=== PATIENT | female | born 1950 | race Caucasian/White ===

== ENCOUNTER → 2020-10-26 14:16 | Outpatient (BNVA) | payer MEDICARE, SELFPAY | PROVIDERS: PCP Student in an Organized Health Care Education/Training Program; Visit Provider Urology | DX: Z11.59 Encounter for screening for other viral diseases (principal); I44.30 Unspecified atrioventricular block; I10 Essential (primary) hypertension; K21.9 Gastro-esophageal reflux disease without esophagitis; I50.9 Heart failure, unspecified; Z79.01 Long term (current) use of anticoagulants | CPT/HCPCS: 36415; 80048; 81001; 85025; 85610; 86850; 86900; 86920; 87086; 87635 ==

== ENCOUNTER 2020-11-01 07:08 | Day surgery (SDC) | payer MEDICARE, MEDICAID, SELFPAY ==
--- NOTE | 2020-10-26 11:04 | XR_ITS ---
WS: [id number] XR chest 1V portable [id number] REASON FOR EXAM: Maker generator exchange/possible lead replacement FINDINGS: Previous sternotomy with valve replacement. Battery pack overlying the left chest with leads to the left subclavian vein to the right atrial and right ventricular apex region. Lead to the right ventricular apex has a slightly redundant course. Th e heart is not enlarged. Thoracic aorta is moderately tortuous without dilatation. No active pulmonary parenchymal or pleural disease is noted. Bony thorax is intact. XR/XR chest 1V portable [id number] IMPRESSION: No acute abnormality. Pacemaker as above.
[2020-10-26 11:09] VITALS: BMI 25.3
--- NOTE | 2020-10-26 11:33 | ECG_ITS ---
[facility] Test Date: 2020-10-26 Pat Name: Pamela Blank Department: Room: Gender: Female Collections Professional: HATTIE : 1950 Requested By: Ramirez Rees Order Number: [id number] Tanna MD: Albertina Perez M.D. Measurements Intervals [place] Rate: 65 P: [place]: QRS: -72 QRSD: 166 T: 117 QT: 476 QTc: 495 Interpretive Statements ELECTRONIC VENTRICULAR PACEMAKER ABNORMAL RHYTHM ECG No previous ECG available for comparison Electronically Signed On 10-26-2020 21:19:41 LANDSCAPE CREW MEMBER by Albertina Perez M.D. [id number]
[2020-10-26 12:30] LABS: Bilirubin Urine 1+ (Negative); Blood Urine Neg (Negative); Glucose Urine UA Norm (Normal); Ketones Urine Negative (Negative); Nitrate Urine Positive (Negative); Protein Urine Neg (Negative); Urine Appearance Hazy (CLEAR); Urine Color Dark Yellow (Yellow); pH Urine 5 (5-7)
[2020-10-26 12:31] LABS: Add Urine Microscopic? YES; Leukocyte Esterase Urine 2+ (Negative); Urobilinogen Urine 1 mg/dL (Negative)
[2020-10-26 12:33] LABS: Add Urine Culture? Yes; Bacteria Urine 4+ /hpf; Squamous Epithelial Cell Urine 0-4 /hpf (0-5); WBC Urine 40-55 /hpf (0-5)
[2020-10-26 12:45] LABS: Basophils # 0.1 10^3/uL (0.0-0.1); Eosinophils # 0.1 10^3/uL (0.0-0.8); Eosinophils % 1.3 %; Hematocrit 46.7 % (37.0-47.0); Hemoglobin 15.9 g/dL (11.5-15.3); Lymphocytes # 1.1 10^3/uL (0.8-4.8); Mean Corpuscular Hemoglobin 36.2 pg (28.0-34.0); Mean Corpuscular Volume 106.4 fL (81-99); Monocytes # 0.6 10^3/uL (0.2-0.9); Monocytes % 9.7 %; Neutrophils # 4.22 10^3/uL (1.8-7.7); Neutrophils % 69.7 %; Nucleated Red Blood Cells % 0 %; Platelet Count 187 10^3/cmm (130-400); Red Blood Count 4.39 10^6/uL (4.1-5.3); Red Cell Distribution Width 13.2 % (12.1-15.1); White Blood Count 6.1 10^3/uL (4.0-10.0)
[2020-10-26 13:00] LABS: INR 3.68 (0.8-1.2)
[2020-10-26 13:38] LABS: Anion Gap 15.6 (5-19); Blood Urea Nitrogen 10 mg/dL (8-23); Calcium 9.1 mg/dL (8.5-10.5); Carbon Dioxide 24 mmol/L (22-29); Chloride 104 mmol/L (98-107); Glomerular Filtration Rate 71.3 mL/min (90-130); Glucose 109 mg/dL (65-115); Osmolality Calculated 288 mOsm/kg (285-295); Potassium 4.6 mmol/L (3.5-5.1); Sodium 139 mmol/L (136-145)
[2020-11-01] VITALS (12 sets, daily range): BP systolic 108–145; BP diastolic 63–88; PULSE 65–81; RESP 15–20; TEMP 36.6–36.8; O2SAT 92–99
--- NOTE | 2020-11-01 | SCC_ITS ---
Procedure Done: Dual-chamber pacemaker generator exchange; right atrial lead placement 356.4 seconds of fluoroscopic guidance, for a cumulative dose of 45.87 mGy, was provided to Dr. Baez by the radiology department. C-arm images of the chest were saved for the patient's permanent record. JENIFER
[2020-11-01] MEDS: sodium chloride 0.9% 1,000 ML 30 ML IV (08:01)
--- NOTE | 2020-11-01 08:14 | P.ANESASSM_ITS ---
Pre-Anesthetic Assessment Pre-Anesthetic Assessment: Height/Weight: Height 1.68 m Weight 71.214 kg Temp Pulse Resp BP Pulse Ox 98.1 F 65 18 145/88 98 11/01/20 07:34 11/01/20 07:34 11/01/20 07:34 11/01/20 07:34 11/01/20 07:34 Preop Diagnosis: Pacemaker generator end of service/malfunctioning lead Proposed Procedure: Operation Date: 11/01/20 08:40 Proposed Procedures p pacemaker generator exchange poss lead revision(Not Applicable) - Toño Baez MD Familial anesthetic complications: NOne Was Beta Alice taken within 24 hours: N/A Last intake: Intake NPO > 8 hrs Last Liquid Date 10/31/20 Last Liquid Time 05:00 Last Solid Date 10/31/20 Last Solid Time 17:00 Social: Social History: No alcohol and No tobacco Exam: Pre-Anes Outpt Exam: alert, oriented x 3, clear to auscultation bila terally and regular rate & rhythm Airway: Cervical ROM: WNL MP: 3 Dentition: False (bottom) and Partials (top) Pulmonary: Pulmonary: Asthma CV/HEM: CV/HEM: Arrythmia, CHF (diastolic) and HTN Comments: Sick sinus syndrome w/ pacemaker in DDDR mode - atrial lead failure. Hx mechanical aortic valve, off warfarin on lovenox bridge, last taken yesterday night GI: GI: GERD (No active GERD at the moment) Metabolic: Metabolic: Hyperlipidemia Anesthetic Plan: ASA status: 4 Anesthesia: MAC Risk of > 500 ml blood loss (7ml/kg in children): No Meds/Allergies Current Medications: Current Medications Generic Name Dose Route Start Last Admin Trade Name Freq PRN Reason Stop Dose Admin Sodium Chloride 1,000 mls @ 30 ml s/hr 11/01/20 07:30 11/01/20 08:01 Sodium Chloride 0.9% IV 11/02/20 07:29 30 mls/hr .Q24H CANDY Administration PFSH Anesthesia PFSH: Medical History (Updated 06/26/20 @ 16:53 by Will Wang MD) CHF (congestive heart failure) GERD (gastroesophageal reflux disease) HTN (hypertension) Hyperlipidemia Warfarin anticoagulation Surgical History S/P AVR (aortic valve replacement) Status cardiac pacemaker Family History Other Diabetes Hypertension Social History Smoking and tobacco status: former smoker Alcohol intake: current Data Anesthesia CBC & Chem 7: 10/26/20 12:29 12 12:29 Other Labs: Laboratory Results - last 48 hr 10/26/20 12:29 Blood Type A Negative Rho(D) Type Negative Antibody Screen Negative Crossmatch See Detail Cardiac Studies: No Data to Display
--- NOTE | 2020-11-01 08:36 | P.HP_ITS ---
Providers/Chief Complaint Primary Care Provider: Jd Blanco History of Present Illness Pamela Blank is a 70 year old female status post AVR mechanical valve by Dr. Galeana several years ago. She had a current pacemaker since 2010. Pacemaker is end of service. There is some question as to malfunction of the atrial lead which may need to be replaced as well due to high impedance. She is on warfarin 3 mg daily except 1.5 mg on Sundays and Wednesdays. She last held her warfarin October. She been on Lovenox injections daily since that time when her last injection was yesterday. She is followed by Dr. Wang and her personal physician in [facility]. Review of Systems Const: Denies: fever(s), chills, change in appetite, change in weight, fatigue or night sweats Eyes: Denies: change in vision or blurry vision ENMT: Denies: odynophagia or hoarseness Card: Denies: chest pain, palpitations, irregular heart rhythm or edema Resp: Denies: dyspnea or productive cough GI: Denies: abdominal pain, nausea, vomiting, dysphagia, heartburn or change in bowel habits : Denies: dysuria, urinary frequency, urinary urgency or urinary hesitancy Musc: Denies: extremity pain or extremity swelling Skin/Breast: Reports: other (Bruises easily); Denies: rash Neuro: Denies: headache(s), numbness in extremities, weakness in extremities or sensory changes Psych: Denies: anxiety, depression or change in appetite Endo: Denies: polyuria, polydipsia or cold intolerance Greg/Lymph: Denies: easy bruising, easy bleeding, petechiae or enlarged lymph nodes Medications/Allergies Home Medications Medication Instructions Recorded Confirmed Last Taken Type albuterol sulfate 90 mcg/actuation 2 puff INHALATION Q6H PRN 01/27/20 11/01/20 10/31/20 History aerosol inhaler fluticasone propionate 110 2 puff INHALATION BID 01/27/20 11/01/20 10/25/20 History mcg/actuation HFA aerosol inhaler lisinopril 20 mg tablet 10 mg PO DAILY 01/27/20 11/01/20 11/01/20 05:00 History loratadine 10 mg tablet 10 mg PO DAILY 01/27/20 11/01/20 11/01/20 05:00 History famotidine 20 mg tablet 20 mg PO BID tab 01/29/20 11/01/20 10/31/20 09:00 History fluticasone propionate 50 1 spray INTRANASAL DAILY PRN gm 06/25/20 11/01/20 10/25/20 History mcg/actuation nasal spray,suspension montelukast 10 mg tablet 10 mg PO DAILY tab 06/25/20 11/01/20 10/31/20 09:00 History pantoprazole 20 mg tablet,delayed 20 mg PO BID tab 06/25/20 11/01/20 10/31/20 09:00 History release verapamil 120 mg 24 hr 120 mg PO DAILY cap 06/25/20 11/01/20 11/01/20 05:00 History capsule,extended release warfarin 1 mg tablet 3 mg PO DAILY tab 06/25/20 11/01/20 10/26/20 History enoxaparin 60 mg/0.6 mL 60 mg SUBCUT DIRECTED #3 ea 10/19/20 11/01/20 10/31/20 09:00 Rx subcutaneous syringe levofloxacin 500 mg tablet 500 mg PO DAILY #4 tab 10/29/20 11/01/20 11/01/20 05:00 Rx Allergies Allergy/AdvReac Type Severity Reaction Status Date / Time Sulfa (Sulfonamide Allergy Unknown tongue Verified 10/26/20 11:16 Antibiotics) swells and feels scalded PFSH PFSH: Medical History (Updated 11/01/20 @ 08:39 by Toño Baez MD) CHF (congestive heart failure) GERD (gastroesophageal reflux disease) HTN (hypertension) Hyperlipidemia Warfarin anticoagulation Surgical History S/P AVR (aortic valve replacement) Status cardiac pacemaker Family History Other Diabetes Hypertension Social History Smoking and tobacco status: former smoker Alcohol intake: current Vital Signs Vitals Signs: Last Vital Signs Temp 98.1 F 11/01/20 07:34 Pulse 65 11/01/20 07:34 Resp 18 11/01/20 07:34 BP 145/88 11/01/20 07:34 Pulse Ox 98 12/14/20 07:34 Physical Exam Const: COMMON NORMALS: patient oriented x3 and alert ORIENTATION/CONSCIOUSNESS: Yes oriented to person, Yes oriented to place and Yes oriented to time HENMT: COMMON NORMALS: normocephalic HEAD & SCALP: normocephalic Neck/C-Spine: COMMON NORMALS: full ROM, supple, no JVD and No carotid bruits GENERAL: Yes trachea midline CERVICAL SPINE: Yes cervical ROM normal Chest: COMMONS NORMALS: normal inspection of the chest (Well-healed sternotomy incision. Chest wall stable.) and normal palpation of entire chest wall OTHER: Easily palpable pacing generator in left subclavicular region. Resp: COMMON NORMALS: normal respiratory effort, No use of accessory muscles, clear to auscultation bilaterally and percussion normal EFFORT & INSPECTION: Yes able to speak in complete sentences and Yes symmetric chest movement AUS CULTATION: clear to auscultation bilaterally PERCUSSION: percussion normal Cardio: COMMON NORMALS: no JVD, regular rate, regular rhythm, S1 normal heart sound present, S2 normal heart sound present, No gallops present (Cardio), No murmurs present (Cardio), No rub (Cardio) and Peripheral pulses 2+ throughout JUGULAR VENOUS DISTENTION: no JVD RATE: regular rate RHYTHM: regular rhythm HEART SOUNDS: S1 normal heart sound present and S2 normal heart sound present PERIPHERAL PULSES: Peripheral pulses 2+ throughout Neuro: COMMON NORMALS: patient oriented x3, no focal motor deficits and no sensory deficits noted SENSORIUM/ORIENTATION: Yes alert, Yes oriented to person, Yes oriented to place and Yes oriented to time GAIT: Yes Normal gait present A&P Assessment and plan (1) Encounter for servicing of pacemaker at end of battery life: We will plan for pacing generator exchange today and if determined diagnostically intraoperatively, will replace the atrial lead if necessary. Rationale for this was carefully and frankly discussed with Ms. Blank and family. All questions answered. Details and risks of the procedure were carefully and frankly discussed. Risks reviewed include the possibility of , stroke, heart attack, major bleeding, infection requiring need for pacemaker extraction, pneumonia, normal thorax requiring chest tube, migration of the lead requiring revision, inability to place the new lead, organ failure, failure to benefit, prolonged hospital stay, pain after the procedure, need for further procedures, inability to complete the procedure, and possible need for long-term followup. Increased risk related to recent Lovenox and long-term warfarin administration and history of easy bruising. All questions were answered. Appropriate consents have been provided for review and signature. Status: Acute Coding Level of Care Code New Pt Acute Franchise Broker for Chg Fwd Patient Type New Exam Detailed Medical Decision Making Moderate Complexity Diagnoses Encounter for servicing of pacemaker at end of battery life Z45.010 Time Spent (min) 30
--- NOTE | 2020-11-01 08:58 | SC_ITS ---
WS: [id number] C-arm FL for Pacemaker REASON FOR EXAM: intra-op FINDINGS: 3 pacemaker leads are identified. 2 lead tips are within the right atrium. The third is at the right ventricular apex. Previous sternotomy. Prosthetic heart valve. SC/C-arm FL for Pacemaker IMPRESSION: Presumed new right atrial pacemaker lead.
[2020-11-01] MEDS: lidocaine 1% INJ 20 mL SUBCUT (09:10)
[2020-11-01] MEDS: ceFAZolin 1,000 mg SDV 1000 MG IRRIGATION (09:10)
--- NOTE | 2020-11-01 10:15 | P.OP_ITS ---
Operative Report Date of procedure: November 01, 2020 Pre-op Diagnosis: Pacemaker generator end of service/malfunctioning lead Post-op diagnosis: same Procedure Done: Dual-chamber pacemaker generator exchange; right atrial lead placement Implants: Right atrial lead; pacing generator Pathology: none sent Surgeon: Toño Baez Anesthesia: MAC and Local Complications: None: Chest x-ray pending Condition: stable Disposition: floor Brief History: 70-year-old female status post AVR and subsequent pacemaker implantation with pacing generator end of service and with high impedance of the right atrial lead. Device replacement and attempt for lead replacement also has been recommended. This is been carefully discussed with patient and family. Proper consents have been reviewed and signed. Increased risk related to attempted to place this lead and the small statured female with prior cardiac surgery and 2 leads currently in position was discussed. Procedure: Ms. Blank taken operating room underwent IV conscious sedation with anesthesia monitoring after being carefully positioned in the OR table. Her entire chest were sterilely prepped and draped. Initially 1% lidocaine was infiltrated through the incisional scar on her left anterior chest wall from her prior pacemaker implantation. Dissection was carried down to the pseudocapsule which was opened and the patient generator was delivered. Atrial and ventricular leads were dissected free. Next, the patient and Trendelenburg position, utilizing modified shoulder technique, the left subclavian vein was engaged and a guidewire was placed under fluoroscopic guidance into position with some difficulty crossing at the junction of the innominate vein and the SVC. Next, the dilator was passed over the guidewire under fluoroscopic guidance followed by the sheath. Again, there is some resistance noted in the innominate vein. Next, using a series of curved and straight wires, right atrial lead was placed deep into the right atrium and then subsequently removed and placed into position with stability and then interrogated with appropriate parameters. Next, the new generator was brought in the field. We initially interrogated the ventricular lead to confirm that it was still appropriate. Following this, the new atrial lead and old ventricular lead were placed into the new pacing generator and secured with excellent capture and appropriate parameters that were measured. Old generator was removed from the field. The old right atrial lead was capped. Wound was irrigated with antibiotic solution. Pacing generator and leads were placed back into the old pacemaker pocket. Hemostasis confirmed. Sponge needle count correct. Wound was closed in 2 layers of 3-0 Vicryl suture. Skin was reapproximated in a similar manner with 4-0 Vicryl suture. Skin adhesive was applied followed by a sterile pressure dressing. Left arm was placed in a sling. She was awakened from IV conscious sedation with equal breath sounds bilaterally and taken to the postoperative care unit where a chest x-ray is currently pending. We did counselor/art therapist with her completion of the procedure. She will be admitted overnight as outpatient in a bed.
--- NOTE | 2020-11-01 10:33 | XR_ITS ---
WS: [id number] XR chest 1V portable [id number] REASON FOR EXAM: POST OP FINDINGS: Compared to the previous examination of 10/26/2020, generator replacement in the left chest wall with additional lead to the right atrium. Prosthetic heart valve. No cardiomegaly. No left pneumothorax. Minor linear atelectasis in the left lung base. Right lung clear. XR/XR chest 1V portable [id number] IMPRESSION: New generator and lead placement as above.
--- NOTE | 2020-11-01 15:05 | ANE.PACU2 ---
Inpatient post-anesthesia follow up: Airway intact: Yes Vital signs: Temperature 98.3 F Pulse Rate 71 Respiratory Rate 19 Blood Pressure 118/70 Pulse Oximetry 96 Oxygen Delivery Me thod Room Air Oxygen Flow Rate Fraction of Inspir ed Oxygen Hydration adequate: Yes Nausea and vomiting: No Pain level: 3 Mental status: Baseline
[2020-11-01] MEDS: HYDROcodone-acetaminophen 5-325 mg Tablet 1 TAB PO (16:01)
[2020-11-01] MEDS: cetylpyridinium Lozenge 1 EACH MUCOUS MEM (16:15)
[2020-11-01] MEDS: ceFAZolin 1,000 MG in sodium chloride 0.9% (plus) 50 ML 100 MG IV (17:24)
[2020-11-01] MEDS: famotidine 20 mg Tablet PO (17:24)
[2020-11-02] VITALS: BP 120/63; PULSE 70; RESP 14; TEMP 36.6; O2SAT 95
[2020-11-02] MEDS: ceFAZolin 1,000 MG in sodium chloride 0.9% (plus) 50 ML 100 MG IV ×2 (00:10→08:14)
[2020-11-02 03:55] VITALS: BP 100/72; PULSE 75; RESP 18; TEMP 36.6; O2SAT 94
[2020-11-02 05:03] VITALS: PULSE 70
[2020-11-02] MEDS: HYDROcodone-acetaminophen 5-325 mg Tablet 1 TAB PO (06:31)
--- NOTE | 2020-11-02 07:06 | PM.DCS ---
Discharge Providers Date of Discharge: November 02, 2020 Attending Provider at Discharge: Toño Baez MD Primary Care Provider: Jd Blanco Diagnoses at Discharge Discharge Diagnosis (1) Encounter for servicing of pacemaker at end of battery life: Status: Acute Reason for Visit Reason for Visit: Brief History: Pacemaker generator end of service and malfunctioning atrial lead Hospital Course Hospital Course Ms. Blank was electively admitted for planned pacemaker generator exchange and evaluation of right atrial lead. Lead was found to have very high impedance. She underwent pacemaker generator exchange and new right atrial lead placement. Postoperatively, she received prophylactic antibiotics and was observed overnight. System interrogation this morning reveals appropriate function. Outer pressure dressing was removed. She does have some modest ecchymosis does have a history for easy bruising. She will be discharged home today in stable condition. She may resume her warfarin at normal dosing schedule. We will also place her on Levaquin 5 mg daily for the next 3 days empirically. She will follow [facility] in 1 week Physical Exam Chest: COMMONS NORMALS: normal palpation of entire chest wall OTHER: Some modest ecchymosis noted around the entire dry dressing. There is no swelling or erythema noted. Only mild tenderness. Resp: COMMON NORMALS: normal respiratory effort and clear to auscultation bilaterally EFFORT & INSPECTION: Yes able to speak in complete sentences AUSCULTATION: clear to auscultation bilaterally Cardio: COMMON NORMALS: regular rate, regular rhythm and S1 normal heart sound present RATE: regular rate RHYTHM: regular rhythm HEART SOUNDS: S1 normal heart sound present OTHER: Prosthetic aortic valve click Extremity: COMMON NORMALS: no clubbing, cyanosis or edema Discharge Data Data Completed and Pending: Completed Studies During Hospitalization Category Date Time Status XR chest 1V denisa ble [id number] Routine Exams 10/26/20 11:04 Completed XR chest 1V denisa ble [id number] Routine Exams 11/01/20 10:33 Completed Pending at discharge Category Date Time Status Leukocyte Reduced RBC Routine Lab 10/26/20 12:29 Results Type and Screen - Cardiac Routine Lab 10/26/20 12:29 Results Labs from last 24 hours 10/26/20 12:29 Blood Type A Negative Rho(D) Type Negative Antibody Screen Negative Crossmatch See Detail Vitals: Last Vital Signs Temp 98 F 11/02/20 03:55 Pulse 70 11/02/20 05:03 Resp 18 11/02/20 03:55 BP 100/72 11/02/20 03:55 Pulse Ox 94 11/02/20 03:55 Discharge Plan Discharge Patient Disposition: Home Condition: Stable Prescriptions: New hydrocodone-acetaminophen 5-325 mg Tablet 1 tab PO Q6H PRN (Reason: Moderate Pain) Qty: 12 RF: 0 levofloxacin 500 mg Tablet 500 mg PO DAILY Qty: 3 RF: 0 Continued famotidine 20 mg tablet 20 mg PO BID RF: 0 pantoprazole 20 mg tablet,delayed release (DR/EC) 20 mg PO BID RF: 0 lisinopril 20 mg tablet 10 mg PO DAILY RF: 0 Flovent HFA 110 mcg/actuation HFA aerosol inhaler 2 puff INHALATION BID RF: 0 loratadine 10 mg tablet 10 mg PO DAILY RF: 0 albuterol sulfate [Ventolin HFA] 90 mcg/actuation HFA aerosol inhaler 2 puff INHALATION Q6H PRN (Reason: SOB) RF: 0 warfarin 1 mg tablet 3 mg PO DAILY RF: 0 montelukast 10 mg tablet 10 mg PO DAILY RF: 0 verapamil 120 mg capsule,ext rel. pellets 24 hr 120 mg PO DAILY RF: 0 fluticasone propionate 50 mcg/actuation spray,suspension 1 spray INTRANASAL DAILY PRN (Reason: allergy symptoms) RF: 0 Discontinued enoxaparin [Lovenox] 60 mg/0.6 mL syringe 60 mg SUBCUT DIRECTED Qty: 3 RF: 0 levofloxacin 500 mg tablet 500 mg PO DAILY Qty: 4 RF: 0 Discharge Orders: Discharge Order (Routine); Ordered 11/02/20 Ordered By: Toño Baez Referrals: [facility] [Provider Group] - 1 week (Pacemaker clinic) Discharge Diet: Usual diet Discharge Activity: Limit activity as instructed Activity Restrictions/Additional Instructions: May remove bandage in 2 days May begin daily showers in 2 days No swimming or tub baths x 2 weeks No ointments on incision Report drainage, redness, heat, increased pain, or swelling to clinic May resume Coumadin on normal dosing schedule Discharge Attestations Time Spent in Discharge Care*: less than 30 min Specific Discharge Activities: educating patient, discussing with casey saw operator/social workers/dc planners, documenting/other paperwork and evaluating patient/reviewing data Status at Discharge: Functional status at discharge: independent ambulation Overall status at discharge: patient is back to baseline Quality Metrics Clinical Quality Measures During this hospital stay, did patient experience: None Coding Level of Care Code Acute Kitchen Utility Associate for Chg Fwd Diagnoses Encounter for servicing of pacemaker at end of battery life Z45.010
[2020-11-02 07:12] VITALS: BP 134/79; PULSE 72; RESP 15; TEMP 36.8; O2SAT 92
[2020-11-02 07:14] VITALS: PULSE 72; RESP 16; O2SAT 96
[2020-11-02] MEDS: levoFLOXacin 500 mg Tablet PO (08:12)
[2020-11-02] MEDS: loratadine 10 mg Tablet PO (08:13)
[2020-11-02] MEDS: famotidine 20 mg Tablet PO (08:13)
[2020-11-02] MEDS: lisinopril 10 mg Tablet PO (08:13)
[2020-11-02] MEDS: montelukast sodium 10 mg Tablet PO (08:13)
--- NOTE | 2020-11-02 08:52 | PC.CHAP ---
Pastoral Care Encounter/Spiritual Assessment Type of Contact [] Declined feed mill tender visit [] Patient/Family/Request visit [] Outpatient visit [] Follow-up visit [] Physician referral [] Code/Alert [x] Routine visit [] Staff referral [] Actively dying [] Patient sleeping [] Family support [] [] Out of room [] Palliative care [] [] Receiving care in room [] Pre-surgical visit [] Trauma [] Long length of stay [] ICU visit [] Other: Relational/Emotional Strength [] Patient feels connected with others/family/visitors/staff [] Distress [] Loneliness/isolation [] Abandonment Spirituality of Patient [] Person of Mercy [] Attends Pentecostalism of their Mercy [] Believes in Prayer [] Reads Bible or Buddhism materials [] There are Spiritual issues to be addressed Blow Mold Machine Operator Interventions [x] Prayer [x] Active listening [x] Non-anxious presence [x] Spiritual/emotional support [] Crisis/trauma care [] Spiritual counseling [] Bereavement support [] Provided bereavement packet [] Provided Bible/devotional materials [] Provided toy/stuffed animal, coloring book to patient or family member [] Provided Communion [] Anointing/[place] [] Salvation [x] Completed spiritual assessment [] Other: Impact on Illness or Injury [] Angry [] Fearful [] Anxious [] Often cries [] Exhaustion [] Unable to work [] Unable to attend restorationism [] Unable to walk/stand [] Unable to read [] Unable to drive [] Unable to eat/drink [] Unable to sleep [] Unable to be with family [] Patient intubated [] Other: Summary resting well, had breakfast,not a big breakfast person Time spent with patient 10 min
[2020-11-02 09:07] VITALS: BP 134/79; PULSE 72; RESP 16; TEMP 36.8; O2SAT 96
--- NOTE | 2020-11-02 09:37 | PC.NURSE ---
Patient discharged home at this time self care patient provided with all discharge instructions and educated in new medications as well as when to resume continued medications; patient verbalized understanding. IV discontinued cath intact min bleeding noted; bandage applied. Patient assisted to wheel chair with all belongings and discharge instructions in hand. Patient accompanied to private vehicle by staff. Patient alert oriented and in stable condition.
== END 2020-11-02 09:42 | disposition home or self-care (01) ==
LOC: OR 08:19 → CSU 10:24
PROVIDERS: PCP Student in an Organized Health Care Education/Training Program; Visit Provider Thoracic Surgery (Cardiothoracic Vascular Surgery)
PROC: 0JWT0PZ Revision of Cardiac Rhythm Related Device in Trunk Subcutaneous Tissue and Fascia, Open Approach (ICD-10-PCS; CPT 33206; principal; 2020-11-01 08:40)
DX: Z45.010 Encounter for checking and testing of cardiac pacemaker pulse generator [battery] (principal); J45.909 Unspecified asthma, uncomplicated; I11.0 Hypertensive heart disease with heart failure; I50.30 Unspecified diastolic (congestive) heart failure; K21.9 Gastro-esophageal reflux disease without esophagitis; E78.5 Hyperlipidemia, unspecified; Z79.01 Long term (current) use of anticoagulants; Z87.891 Personal history of nicotine dependence
CPT/HCPCS: 33206; 33233; 33234; 12345; 71045; 76000; 87077; 87186; 93005; 94640; C1779; C1786; J0690; J2704; J3010; J3490; J3535; J7030